=== PATIENT | female | born 1975 | race Caucasian/White ===

== ENCOUNTER 2017-10-18 13:08 | Emergency (ER) | payer MEDICAID ==
[~2017-10-18] VITALS: Ht 165.1 cm; Wt 85.5 kg
[~2017-10-18 13:08] MED LIST: ABILIFY30 MG PO; AMOXICILLIN 50500 MG PO; CELEXA40 MG PO; CEPHALEXIN500 M1 PO; CYMBALTA 30MG30 MG; DEPO-PROVER150 MG/M1 IM; FISH OIL CONC1000 MG PO; LAMICTAL; LORTAB 5/500 501 TAB PO; NORCO 325 MG-51 TAB PO; PEPCID 20MG TAB20 MG PO; SEROQUEL 200MG200 MG; XANAX0.5 MG PO; ZIPRASIDONE
[2017-10-18 13:10] VITALS: BP 115/58; PULSE 74; TEMP 97.2
[2017-10-18] MEDS ORDERED: NEURONTIN300 MG/CAP PO (13:14)
[2017-10-18] MEDS ORDERED: ABIL400 (13:14)
[2017-10-18] MEDS ORDERED: BRINTELLIX10 (13:14)
[2017-10-18] MEDS ORDERED: INDERAL 10MG10 MG PO (13:15)
== END 2017-10-18 13:57 | disposition home or self-care (01) ==
LOC: COL.ER 13:08
DX: S61.211A Laceration without foreign body of left index finger without damage to nail, initial encounter (principal); W26.8XXA Contact with other sharp object(s), not elsewhere classified, initial encounter; Y92.009 Unspecified place in unspecified non-institutional (private) residence as the place of occurrence of the external cause

== ENCOUNTER 2018-08-23 16:32 | Emergency (ER) | payer MEDICAID ==
[~2018-08-23] VITALS: Ht 162.6 cm; Wt 72.7 kg
[~2018-08-23 16:32] MED LIST changes: +ABIL400; +BRINTELLIX10; +INDERAL 10MG10 MG PO; +NEURONTIN300 MG/CAP PO
[2018-08-23] MEDS ORDERED: NORCO 325 MG-51 TAB PO (18:09)
[2018-08-23 19:37] LABS: BASO % 0.4 % (0.0-2.0); EOS % 0.4 % (0-4.0); GRAN % 74.8 % (42.2-75.2); HEMOGLOBIN 12.1 g/dl (12.5-16.0); LYMPH # 1.3 (1.2-3.4); LYMPH % 16.2 % (20.0-51.0); MEAN CELL VOLUME 90 fl (80.0-100.0); MEAN CORPUSCULAR HEMOGLOBIN 31 pg (27.0-31.0); MEAN CORPUSCULAR HGB CONC 34 g/dl (33.0-37.0); MEAN PLATELET VOLUME 9.6 fl (7.4-10.4); MONO # 0.6 (0.1-0.6); MONO % 7.7 % (1.7-9.3); PLATELET COUNT 134 K/mm3 (130-400); RED BLOOD COUNT 3.96 M/mm3 (4.10-5.30); REDCELL DISTRIBUTION WIDTH-CV 12.9 % (11.5-14.5)
[2018-08-23 19:38] LABS: HEMATOCRIT 35.8 % (37.0-47.0)
[2018-08-23 19:47] LABS: ALBUMIN 3.3 gm/dL (3.5-5.0); BILIRUBIN,TOTAL 0.1 mg/dL (0.0-1.0); CALCIUM 8.5 mg/dL (8.4-10.2); CREATININE, serum 0.6 mg/dL (0.52-1.25); POTASSIUM 3.5 mmol/L (3.4-5.0); TOTAL PROTEIN 6.2 gm/dL (6.4-8.2)
[2018-08-23] MEDS ORDERED: DOXYCYCLINE 10100 MG PO (19:47)
[2018-08-23 20:15] VITALS: BP 118/72; PULSE 99
== END 2018-08-23 20:16 | disposition home or self-care (01) ==
LOC: COL.ER 16:32
PROVIDERS: Physician Assistant
DX: J06.9 Acute upper respiratory infection, unspecified (principal); Z90.49 Acquired absence of other specified parts of digestive tract

== ENCOUNTER 2018-09-22 19:09 | Emergency (ER) | payer MEDICAID ==
[~2018-09-22] VITALS: Ht 162.6 cm; Wt 68.2 kg
[~2018-09-22 19:09] MED LIST changes: +DOXYCYCLINE 10100 MG PO
[2018-09-22 19:16] VITALS: BP 110/65; TEMP 99.5
[2018-09-22 21:18] VITALS: PULSE 89
== END 2018-09-22 21:19 | disposition home or self-care (01) ==
LOC: COL.ER 19:09
DX: M23.92 Unspecified internal derangement of left knee (principal); X50.0XXA Overexertion from strenuous movement or load, initial encounter

== ENCOUNTER → 2019-05-27 | Outpatient (CLI) | payer MEDICAID ==
[~2019-05-27] MED LIST changes: +DEPAKOTE ER 50500 MG PO; +NEURONTIN800 MG/TAB PO; +REXULTI3 MG PO; +TOPAMAX 100MG100 M1 PO
== END ==
LOC: COL.RAD 14:59
DX: M77.12 Lateral epicondylitis, left elbow (principal)

== ENCOUNTER 2019-07-29 11:00 | Outpatient (RCR) | payer MEDICAID | END 2019-08-08 08:34 | disposition home or self-care (01) | LOC: WSOT 11:00 | DX: M77.12 Lateral epicondylitis, left elbow (principal) ==

== ENCOUNTER 2020-02-12 18:02 | Emergency (ER) | payer MEDICAID ==
[~2020-02-12] VITALS: Ht 162.6 cm; Wt 60.9 kg
[2020-02-12 18:07] VITALS: TEMP 97.9
[2020-02-12] MEDS ORDERED: ADDERALL30 MG PO (18:15)
[2020-02-12 18:58] LABS: BASO % 0.5 % (0.0-2.0); EOS % 0.6 % (0-4.0); GRAN # 3.3 (1.4-6.5); GRAN % 51.6 % (42.2-75.2); HEMOGLOBIN 11.4 g/dl (12.5-16.0); LYMPH # 2.5 (1.2-3.4); LYMPH % 38.7 % (20.0-51.0); MEAN CELL VOLUME 96 fl (80.0-100.0); MEAN CORPUSCULAR HEMOGLOBIN 34 pg (27.0-31.0); MEAN CORPUSCULAR HGB CONC 35 g/dl (33.0-37.0); MEAN PLATELET VOLUME 10.8 fl (7.4-10.4); MONO # 0.5 (0.1-0.6); MONO % 8.4 % (1.7-9.3); PLATELET COUNT 162 K/mm3 (130-400); RED BLOOD COUNT 3.37 M/mm3 (4.10-5.30); REDCELL DISTRIBUTION WIDTH-CV 12.2 % (11.5-14.5)
[2020-02-12 18:59] LABS: HEMATOCRIT 32.3 % (37.0-47.0)
[2020-02-12 19:02] LABS: ALBUMIN 3.6 gm/dL (3.5-5.0); BILIRUBIN,TOTAL 0.3 mg/dL (0.0-1.0); CALCIUM 9.1 mg/dL (8.4-10.2); CREATININE, serum 0.81 (0.52-1.25); POTASSIUM 3.4 mmol/L (3.4-5.0); TOTAL PROTEIN 6.4 gm/dL (6.4-8.2)
[2020-02-12 19:18] LABS: PROLACTIN 19.5 ng/mL (3.0-18.6)
[2020-02-12 19:35] VITALS: BP 98/59; PULSE 74
== END 2020-02-12 19:47 | disposition home or self-care (01) ==
LOC: COL.ER 18:02
PROVIDERS: Family Medicine
DX: R56.9 Unspecified convulsions (principal); F17.210 Nicotine dependence, cigarettes, uncomplicated; Z88.2 Allergy status to sulfonamides; Z88.6 Allergy status to analgesic agent
CPT/HCPCS: J1790; J7120

== ENCOUNTER 2020-03-03 13:15 | Outpatient (RCR) | payer MEDICAID ==
[~2020-03-03 13:15] MED LIST changes: +ADDERALL30 MG PO
== END 2020-05-11 | disposition home or self-care (01) ==
LOC: WSOT
DX: M77.11 Lateral epicondylitis, right elbow (principal); M77.12 Lateral epicondylitis, left elbow

== ENCOUNTER → 2020-04-02 | Outpatient (CLI) | payer MEDICAID | LOC: COL.RAD 09:17 | DX: D32.9 Benign neoplasm of meninges, unspecified (principal) | CPT/HCPCS: A9585 ==

== ENCOUNTER 2020-09-08 12:02 | Emergency (ER) | payer MEDICAID ==
[~2020-09-08] VITALS: Ht 162.6 cm; Wt 65.0 kg
[2020-09-08 12:09] VITALS: BP 99/67; TEMP 98.2
[2020-09-08] MEDS ORDERED: FLEXERIL 1010 MG/TAB PO (13:37)
[2020-09-08] MEDS ORDERED: ATIVAN 1MG T1 MG/TAB PO (13:38)
[2020-09-08] MEDS ORDERED: LUNESTA3 MG PO (13:38)
[2020-09-08] MEDS ORDERED: DOXYCYCLINE 10100 MG PO (13:38)
[2020-09-08] MEDS ORDERED: NAPROSYN500 MG PO (13:39)
[2020-09-08] MEDS ORDERED: DESOWEN0.051 TP (13:39)
[2020-09-08 13:40] VITALS: PULSE 81
== END 2020-09-08 13:40 | disposition home or self-care (01) ==
LOC: COL.ER 12:02
DX: S61.012A Laceration without foreign body of left thumb without damage to nail, initial encounter (principal); F32.9 Major depressive disorder, single episode, unspecified; F17.210 Nicotine dependence, cigarettes, uncomplicated; Z88.2 Allergy status to sulfonamides; Z88.6 Allergy status to analgesic agent; W25.XXXA Contact with sharp glass, initial encounter

== ENCOUNTER → 2020-09-20 | Outpatient (CLI) | payer MEDICAID ==
[~2020-09-20] MED LIST changes: +ATIVAN 1MG T1 MG/TAB PO; +DESOWEN0.051 TP; +FLEXERIL 1010 MG/TAB PO; +LUNESTA3 MG PO; +NAPROSYN500 MG PO
[2020-09-20 11:13] VITALS: BP 103/64; PULSE 75; TEMP 97.7
== END ==
LOC: COL.ER 11:09
DX: Z48.02 Encounter for removal of sutures (principal)

== ENCOUNTER → 2020-09-30 | Outpatient (CLI) | payer MEDICAID | LOC: MC.RAD 14:14 | DX: Z12.31 Encounter for screening mammogram for malignant neoplasm of breast (principal); N64.89 Other specified disorders of breast ==

== ENCOUNTER → 2020-10-08 | Outpatient (CLI) | payer MEDICAID | LOC: MC.RAD 08:00 | DX: N64.89 Other specified disorders of breast (principal) ==

== ENCOUNTER → 2021-07-04 | Outpatient (CLI) | payer MEDICAID | LOC: COL.RAD 07:43 | DX: R10.12 Left upper quadrant pain (principal); Z90.49 Acquired absence of other specified parts of digestive tract ==

== ENCOUNTER 2021-08-02 14:38 | Emergency (ER) | payer MEDICAID ==
[~2021-08-02] VITALS: Ht 162.6 cm; Wt 63.2 kg
[2021-08-02 15:11] VITALS: TEMP 98
[2021-08-02 19:11] VITALS: BP 117/81; PULSE 71
== END 2021-08-02 19:14 | disposition home or self-care (01) ==
LOC: COL.ER 14:38
DX: R10.32 Left lower quadrant pain (principal); F31.9 Bipolar disorder, unspecified; Z98.84 Bariatric surgery status; Z90.49 Acquired absence of other specified parts of digestive tract; Z79.899 Other long term (current) drug therapy
CPT/HCPCS: J1885

== ENCOUNTER 2021-08-06 00:43 | Emergency (ER) | payer MEDICAID ==
[~2021-08-06] VITALS: Ht 162.6 cm; Wt 64.1 kg
[2021-08-06 02:23] VITALS: TEMP 98.8
[2021-08-06 03:43] LABS: ALBUMIN 3.9 gm/dL (3.5-5.0); BILIRUBIN,TOTAL 0.4 mg/dL (0.2-1.2); CALCIUM 8.9 mg/dL (8.4-10.2); CREATININE, serum 0.88 mg/dL (0.57-1.11); POTASSIUM 3.8 mmol/L (3.5-4.5); TOTAL PROTEIN 6.5 gm/dL (6.2-8.1)
[2021-08-06 03:49] LABS: BASO % 0.4 % (0.0-2.0); EOS # 0.1 K/mm3 (0.0-0.7); EOS % 0.6 % (0.0-4.0); GRAN % 70.1 % (42.2-75.2); HEMOGLOBIN 11.7 g/dl (12.5-16.0); LYMPH # 2.1 K/mm3 (1.2-3.4); LYMPH % 20.7 % (20.0-51.0); MEAN CELL VOLUME 93 fl (80.0-100.0); MEAN CORPUSCULAR HEMOGLOBIN 31 pg (27-31); MEAN CORPUSCULAR HGB CONC 34 g/dl (33.0-37.0); MONO # 0.8 K/mm3 (0.1-0.6); MONO % 7.9 % (1.7-9.3); PLATELET COUNT 207 K/mm3 (130-400); RED BLOOD COUNT 3.76 M/mm3 (4.10-5.30); REDCELL DISTRIBUTION WIDTH-CV 13.2 % (11.5-14.5)
[2021-08-06 03:51] LABS: HEMATOCRIT 34.9 % (37.0-47.0)
[2021-08-06] MEDS ORDERED: BENTYL 20MG20 MG/TAB PO (07:08)
[2021-08-06] MEDS ORDERED: NORCO 325 MG-51 TAB PO (07:08)
[2021-08-06] MEDS ORDERED: ZOFRAN ODT4 MG PO (07:08)
[2021-08-06 07:27] VITALS: BP 101/62; PULSE 98
== END 2021-08-06 07:27 | disposition home or self-care (01) ==
LOC: COL.ER 00:43
PROVIDERS: Personal Emergency Response Attendant
DX: R10.84 Generalized abdominal pain (principal); F31.9 Bipolar disorder, unspecified; F17.210 Nicotine dependence, cigarettes, uncomplicated; Z79.899 Other long term (current) drug therapy
CPT/HCPCS: J1790; J3010; J7030; Q9967

== ENCOUNTER 2021-08-11 10:14 | Day surgery (SDC) | payer MEDICAID ==
[~2021-08-11] VITALS: Ht 162.6 cm; Wt 63.6 kg
[2021-08-11] VITALS (9 sets, daily range): BP systolic 93–103; BP diastolic 52–64; PULSE 64–88; TEMP 97.2–97.4
[~2021-08-11 10:14] MED LIST changes: +BENTYL 20MG20 MG/TAB PO; +ZOFRAN ODT4 MG PO
--- NOTE | 2021-08-11 15:10 | NUR ---
Patient returns to room 3 per cart from PACU accompanied by Alpa BAUER. Patient arouses to verbal stimuli. Temp 97.8. On oxygen at 2L per nasal cannula. Allowed to rest. Incisions x3 on right side of abdomen intact with zelaya set and wound edges well approximated. IV fluids infusing. Siderails up x2 and call light in reach.
[2021-08-11] MEDS ORDERED: PERCOCET 325 MG1 TA2 PO (15:21)
--- NOTE | 2021-08-11 15:25 | NUR ---
Resting with eyes closed and not disturbed.
--- NOTE | 2021-08-11 15:40 | NUR ---
Continues to rest with eyes closed.
--- NOTE | 2021-08-11 15:55 | NUR ---
Awake and taking sips of water. Denies nausea.
--- NOTE | 2021-08-11 16:05 | NUR ---
Eating toast and drinking apple juice. Denies nausea.
--- NOTE | 2021-08-11 16:37 | NUR ---
Rates pain at 5/10. Medicated with Percocet 5mg one tab.
--- NOTE | 2021-08-11 16:40 | NUR ---
Resting with eyes closed and offers no further complaints of pain.
--- NOTE | 2021-08-11 17:10 | NUR ---
Resting and offers no further complaints of discomfort.
--- NOTE | 2021-08-11 17:45 | NUR ---
IV to INT. Assisted up to bathroom. Able to void small amount of urine. Returns to room and INT discontinued. Assisted patient with dressing. Given patient dismissal instructions. All questions answered.
--- NOTE | 2021-08-11 17:49 | NUR ---
Patient dismissed to home driven by mother and taken to the emergency room entrance and assisted into vehicle with dismissal instructions in hand.
== END 2021-08-11 17:49 | disposition home or self-care (01) ==
LOC: SDCO 10:14
DX: K43.9 Ventral hernia without obstruction or gangrene (principal); K42.9 Umbilical hernia without obstruction or gangrene; G89.29 Other chronic pain; F17.210 Nicotine dependence, cigarettes, uncomplicated; F31.9 Bipolar disorder, unspecified; Z79.899 Other long term (current) drug therapy; Z98.84 Bariatric surgery status; Z80.42 Family history of malignant neoplasm of prostate; Z80.1 Family history of malignant neoplasm of trachea, bronchus and lung; Z80.41 Family history of malignant neoplasm of ovary
CPT/HCPCS: C1781; J0690; J1100; J2405; J2704; J3010; J7120

== ENCOUNTER 2021-08-28 00:43 | Emergency (ER) | payer MEDICAID ==
[~2021-08-28] VITALS: Ht 162.6 cm; Wt 62.7 kg
[~2021-08-28 00:43] MED LIST changes: +PERCOCET 325 MG1 TA2 PO
[2021-08-28 00:45] VITALS: TEMP 97.8
[2021-08-28 01:34] LABS: COLLECTION METHOD CLEAN CATCH
[2021-08-28 01:37] LABS: BASO # 0.1 K/mm3 (0.0-0.2); BASO % 0.8 % (0.0-2.0); EOS # 0.1 K/mm3 (0.0-0.7); EOS % 1.4 % (0.0-4.0); GRAN % 64.3 % (42.2-75.2); HEMOGLOBIN 12.8 g/dl (12.5-16.0); LYMPH # 1.9 K/mm3 (1.2-3.4); LYMPH % 24.9 % (20.0-51.0); MEAN CELL VOLUME 90 fl (80.0-100.0); MEAN CORPUSCULAR HEMOGLOBIN 31 pg (27-31); MEAN CORPUSCULAR HGB CONC 35 g/dl (33.0-37.0); MEAN PLATELET VOLUME 10.5 fl (7.4-10.4); MONO # 0.7 K/mm3 (0.1-0.6); MONO % 8.3 % (1.7-9.3); PLATELET COUNT 264 K/mm3 (130-400); REDCELL DISTRIBUTION WIDTH-CV 12.6 % (11.5-14.5)
[2021-08-28 01:44] LABS: MUCOUS Present (NOT PRESENT); PH 6 (5-8); SQUAMOUS EPITHELIAL 0-2 /hpf (0-10); URINE APPEARANCE Clear (CLEAR/HAZY); URINE BACTERIA None Seen /hpf (NONE SEEN); URINE BILIRUBIN Negative (NEGATIVE); URINE BLOOD Negative (NEGATIVE); URINE COLOR Yellow (YELLOW); URINE GLUCOSE Negative (NEGATIVE); URINE KETONE Negative (NEGATIVE); URINE LEUKOCYTE ESTERASE Negative (NEGATIVE); URINE NITRATE Negative (NEGATIVE); URINE PROTEIN(semi-quant) Negative (NEGATIVE); URINE RBC 0-2 /hpf (0-2); URINE UROBILINOGEN Negative (NEGATIVE)
[2021-08-28 01:59] LABS: ALBUMIN 4.2 gm/dL (3.5-5.0); BILIRUBIN,TOTAL 0.4 mg/dL (0.2-1.2); C-REACTIVE PROTEIN 0.13 mg/dL (0.00-0.50); CALCIUM 9.2 mg/dL (8.4-10.2); CREATININE, serum 0.8 mg/dL (0.57-1.11); POTASSIUM 3.7 mmol/L (3.5-4.5); TOTAL PROTEIN 7.3 gm/dL (6.2-8.1)
[2021-08-28 04:03] VITALS: BP 103/57; PULSE 77
== END 2021-08-28 04:03 | disposition home or self-care (01) ==
LOC: COL.ER 00:43
PROVIDERS: Nurse Practitioner Primary Care
DX: R10.84 Generalized abdominal pain (principal); R11.0 Nausea; F41.9 Anxiety disorder, unspecified; F32.A Depression, unspecified; F17.200 Nicotine dependence, unspecified, uncomplicated; Z90.49 Acquired absence of other specified parts of digestive tract; Z98.84 Bariatric surgery status; Z98.890 Other specified postprocedural states; Z20.822 Contact with and (suspected) exposure to COVID-19; Z88.5 Allergy status to narcotic agent
CPT/HCPCS: J2405; J7030; Q9967

== ENCOUNTER → 2022-04-20 | Outpatient (CLI) | payer MEDICAID | LOC: COL.RAD 09:45 | DX: R10.32 Left lower quadrant pain (principal) ==

== ENCOUNTER → 2022-05-18 | Outpatient (CLI) | payer MEDICAID | LOC: COL.RAD 14:27 | DX: M79.645 Pain in left finger(s) (principal) ==

== ENCOUNTER 2023-11-11 16:09 | Inpatient (IN) | payer OTHER ==
[2023-11-11] VITALS (297 sets, daily range): BP systolic 85–118; BP diastolic 48–108; PULSE 64–83; TEMP 32.9; O2SAT 98–100
[~2023-11-11] VITALS: Ht 162.6 cm; Wt 61.2 kg
[2023-11-11] MEDS ORDERED: Etomidate 20 MG/10 ML VIAL IV ONE (16:25)
[2023-11-11] MEDS ORDERED: Succinylcholine PF 200 MG/10 ML SYRINGE IV ONE (16:26)
[2023-11-11 16:27] LABS: BASO % 0.9 % (0.0-2.0); EOS # 0.1 K/mm3 (0.0-0.7); EOS % 1.8 % (0.0-4.0); GRAN # 1.4 K/mm3 (1.4-6.5); GRAN % 39.7 % (42.2-75.2); HEMOGLOBIN 10.9 g/dl (12.5-16.0); LYMPH # 1.6 K/mm3 (1.2-3.4); LYMPH % 45.6 % (20.0-51.0); MEAN CELL VOLUME 91 fl (80.0-100.0); MEAN CORPUSCULAR HEMOGLOBIN 30 pg (27-31); MEAN CORPUSCULAR HGB CONC 33 g/dl (33.0-37.0); MEAN PLATELET VOLUME 10.6 fl (7.4-10.4); MONO # 0.4 K/mm3 (0.1-0.6); PLATELET COUNT 147 K/mm3 (130-400); RED BLOOD COUNT 3.61 M/mm3 (4.10-5.30); REDCELL DISTRIBUTION WIDTH-CV 13.2 % (11.5-14.5)
[2023-11-11 16:28] LABS: HEMATOCRIT 32.7 % (37.0-47.0)
[2023-11-11] MEDS ORDERED: fentaNYL 50 MCG/ML 2 ML VIAL IV ONE (16:33)
[2023-11-11] MEDS ORDERED: Midazolam 2 MG/2 ML VIAL IV ONE (16:35)
[2023-11-11] MEDS ORDERED: NS 1,000 ML IV ONE ×2 (16:45→17:30)
[2023-11-11 16:46] LABS: ALANINE AMINOTRANSFERASE 23 U/L (0-55); ALBUMIN 3.1 gm/dL (3.5-5.0); ALCOHOL(ethanol),MEDICAL < 10 mg/dL (0-10); ALKALINE PHOSPHATASE 86 U/L (40-150); ANION GAP 7 mmol/L (7-16); AST,SGOT 21 U/L (5-34); BILIRUBIN,TOTAL 0.3 mg/dL (0.2-1.2); BLOOD UREA NITROGEN 11 mg/dL (7-19); C-REACTIVE PROTEIN 0.05 mg/dL (0.00-0.50); CALCIUM 8.6 mg/dL (8.4-10.2); CHLORIDE 110 mmol/L (98-107); CREATININE, serum 0.69 mg/dL (0.57-1.11); GLUCOSE 69 mg/dL (70-99); POTASSIUM 3.6 mmol/L (3.5-4.5); SODIUM 141 mmol/L (136-145); TOTAL PROTEIN 5.7 gm/dL (6.2-8.1)
[2023-11-11 16:47] LABS: ARTERIAL BLD GAS O2 SATURATION 99.5 % (92-100); ARTERIAL BLOOD GAS BASE EXCESS -1.2 (-2-2); ARTERIAL BLOOD GAS HCO3 22.9 meq/L (22-26); ARTERIAL BLOOD GAS PCO2 36.4 mmHg (35-45); ARTERIAL BLOOD GAS pH 7.42 (7.35-7.45)
[2023-11-11 16:48] LABS: ARTERIAL BLOOD GAS PO2 497.8 mmHg (80-100)
[2023-11-11 16:54] LABS: COLLECTION METHOD CLEAN CATCH
[2023-11-11 16:58] LABS: PH 7.5 (5.0-8.5); URINE APPEARANCE CLEAR (CLEAR/HAZY); URINE BLOOD NEGATIVE (NEGATIVE); URINE COLOR YELLOW (YELLOW); URINE GLUCOSE NEGATIVE (NEGATIVE); URINE KETONE NEGATIVE (NEGATIVE); URINE NITRATE NEGATIVE (NEGATIVE); URINE PROTEIN(semi-quant) NEGATIVE (NEGATIVE); URINE UROBILINOGEN 0.2 E.U/dL (0.2-1.0)
[2023-11-11 17:09] LABS: TRICYCLIC ANTIDEPRESS URINE NEGATIVE (NEGATIVE)
[2023-11-11] MEDS ORDERED: *Potassium Replacement Protocol MC SCH (18:00)
[2023-11-11] MEDS ORDERED: fentaNYL 100 ML IV ONE (18:00)
[2023-11-11] MEDS ORDERED: NS 1,000 ML IV SCH (18:00)
--- NOTE | 2023-11-11 18:10 | NUR ---
Pt arrived from to ICU 8 from ED at this time. Report received from LIZETTE Smith. Pt intubated and sedated in ED due to intentional overdose of lunesta. 7.5 ETT 22 cm at gums. OG 50cm at lip and to LIS. Dave cath to dependent drainage with clear yellow urine draining. Bilateral soft wrist restraints applied at 1830 for medical management of lines. Pt pulling arms up and coughing on ET tube but does not follow commands at this itme. Pt has a silver ring on left hand and a silver ring on right hand; those remain in place. Pt's dentures, clothes, and shoes given to security prior to pt being brought to ICU. Unable to obtain info on pt's home medications, allergies, pharmacy, and history due to pt being intubated and sedated; some information obtained from pt's mother and son. Mother and son brought to the bedside once pt was settled. LIZETTE Smith states that once pt is awake and extubated we are to call [facility] to let them know and are not supposed to let her leave until they arrive to speak with her; Dr. Gage aware.
[2023-11-11] MEDS ORDERED: Naloxone 0.4 MG/ML VIAL IV PRN (18:30)
[2023-11-11] MEDS ORDERED: fentaNYL 100 ML IV SCH (18:30)
[2023-11-11] MEDS ORDERED: Pantoprazole 40 MG in NS 10 ML IV SCH ×2 (19:33→19:34)
--- NOTE | 2023-11-11 19:49 | NUR ---
PT INTUBATED AND SEDATED. BILATERAL WRIST RESTRAINTS IN PLACE. ET TUBE AT 22 AT GUMS. OG AT 50 AT LIPS. PERIPHERAL IV'S IN BOTH AC'S. CONNORS CATHETER IN PLACE AND DRAINING. PT WAKES TO PAIN BUT DOES NOT FOLLOW COMMANDS.
--- NOTE | 2023-11-11 21:09 | NUR ---
AT [address] FOX OF [facility] VENT SETTINGS. VT DECREASED FROM 400 TO 380. NO NEW SETTING CHANGES MADE AT THIS TIME.
[2023-11-12] VITALS (992 sets, daily range): BP systolic 87–115; BP diastolic 43–68; PULSE 58–80; TEMP 35.7–37.4; O2SAT 92–100
[2023-11-12] MEDS ORDERED: NS 1,000 ML IV ONE (02:00)
[2023-11-12] MEDS ORDERED: Atropine 1 MG/10 ML SYRINGE IV PRN (04:30)
[2023-11-12 04:41] LABS: BASO % 0.4 % (0.0-2.0); EOS # 0.1 K/mm3 (0.0-0.7); EOS % 2.1 % (0.0-4.0); GRAN # 1.8 K/mm3 (1.4-6.5); HEMOGLOBIN 10.8 g/dl (12.5-16.0); LYMPH # 2.5 K/mm3 (1.2-3.4); LYMPH % 50.8 % (20.0-51.0); MEAN CELL VOLUME 90 fl (80.0-100.0); MEAN CORPUSCULAR HEMOGLOBIN 31 pg (27-31); MEAN CORPUSCULAR HGB CONC 34 g/dl (33.0-37.0); MEAN PLATELET VOLUME 10.6 fl (7.4-10.4); MONO # 0.4 K/mm3 (0.1-0.6); MONO % 8.5 % (1.7-9.3); PLATELET COUNT 149 K/mm3 (130-400); RED BLOOD COUNT 3.52 M/mm3 (4.10-5.30); REDCELL DISTRIBUTION WIDTH-CV 13.6 % (11.5-14.5)
[2023-11-12 04:45] LABS: HEMATOCRIT 31.6 % (37.0-47.0)
[2023-11-12 04:58] LABS: ALBUMIN 2.9 gm/dL (3.5-5.0); CALCIUM 8.1 mg/dL (8.4-10.2); CREATININE, serum 0.68 mg/dL (0.57-1.11); MAGNESIUM 1.7 mg/dL (1.6-2.6); PHOSPHOROUS 2.8 mg/dL (2.3-4.7); POTASSIUM 3.9 mmol/L (3.5-4.5)
[2023-11-12 05:36] LABS: ARTERIAL BLD GAS O2 SATURATION 97.9 % (92-100); ARTERIAL BLD GAS TCO2 CT 22.7; ARTERIAL BLOOD GAS BASE EXCESS -3.4 (-2-2); ARTERIAL BLOOD GAS HCO3 21.6 meq/L (22-26); ARTERIAL BLOOD GAS PCO2 38.6 mmHg (35-45); ARTERIAL BLOOD GAS pH 7.37 (7.35-7.45)
[2023-11-12 05:37] LABS: ARTERIAL BLOOD GAS PO2 124.7 mmHg (80-100)
--- NOTE | 2023-11-12 06:23 | NUR ---
PATIENT HAD A LOW HEART RATE AROUND 0400. SEDATION WAS TURNED OFF TO IMPROVE HEART RATE. PT TOLERATED WELL. SEDATION OFF FOR ABOUT 15-20 MINUTES. PT WAKES AND MOVES TO PAIN.
[2023-11-12] MEDS ORDERED: Magnesium Sulfate 4% 50 ML IV ONE (09:00)
[2023-11-12] MEDS ORDERED: LR 1,000 ML IV ONE (09:00)
--- NOTE | 2023-11-12 09:23 | NUR ---
[facility] [employer] met with patient's mother, Kyara (ph#[phone]) and son, Quinton (age 21) at bedside as patient is intubated at time of intake. Patient lives in [place] with her son and has Pati Bunn NP listed as primary care provider. Quinton remarked patient has not seen Pati in a while. Per progress notes, patient was admitted after an intentional overdose. Kyara advised patient has a significant mental health history and has been diagnosed with bipolar disorder. Kyara advised patient is involved with [facility], but Kyara implied that she is not pleased with their services. Kyara stated patient has asked for help many times. Patient is listed as self pay and Kyara stated she thought patient was supposed to have coverage start 11/19/23, but not sure what the exact coverage was. SW contacted [employer] for assistance. Patient does not have DPOA-HC and her son, Quinton is her only child and legal next of kin. Quinton stated he does not have a phone and stated the best way to reach him is through Kyara. Discharge Plan: TBD, patient intubated and will need psych consult
--- NOTE | 2023-11-12 09:27 | NUR ---
RECEIVED REPORT FROM [facility] RNMINERVA. PATIENT REMAINS INTUBATED AND SEDATED AT THIS TIME. PROPOFOL AND FENTANYL FOR SEDATION. TWO SOFT WRIST RESTRATINTS IN PLACE.
--- NOTE | 2023-11-12 09:56 | NUR ---
HEAD TO TOE ASSESSMENT COMPLETED. PATIENT REMAINS INTUBATED AND ON SEDATION AT THIS TIME. PATIENT REACTS TO VOICE AND IS ABLE TO FOLLOW COMMANDS. PUPILS EQUAL AND REACTIVE. HEART SOUNDS REGULAR WITH S1 AND S2 NOTED. BOWEL SOUNDS ACTIVE. LUNG SOUNDS CLEAR BILATERALLY. PATIENT HAS CONNORS IN PLACE DRAINING, CLEAR, YELLOW URINE. PATIENT HAS TWO SOFT WRIST RESTRAINTS IN PLACE FOR LINE AND TUBE SECURITY. BED IN A LOW POSITION.
--- NOTE | 2023-11-12 16:57 | NUR ---
PATIENT ABLE TO WAKE UP AND FOLLOW COMMANDS ON AMOUNT OF SEDATION CURRENTLY ON. GETS VERY RESTLESS AND DOESN'T FOLLOW COMMANDS OFF SEDATION.
--- NOTE | 2023-11-12 18:57 | NUR ---
PATIENT REMAINS INTUBATED AND ON SEDATION AT THIS TIME. FENTANYL AND PROPOFOL UTILIZED FOR SEDATION. TWO SOFT WRIST RESTRAINTS IN PLACE FOR TUBE AND LINE SAFETY. PATIENT REMAINS ON LEVOPHED AT THIS TIME FOR BLOOD PRESSURE MANAGEMENT. BED IN A LOW POSITION WITH ALARM ON.
--- NOTE | 2023-11-12 20:00 | NUR ---
PT'S MOTHER CALLED AT 1949. STATUS UPDATE GIVEN. PT STABLE ON ROUNDS. KERA KIRKLAND REMOVED. PT FOLLOWS SOME COMMANDS. AWAKENS EASILY. NO SIGN OF DISTRESS AT THIS TIME. CONTINUE PLAN OF CARE.
--- NOTE | 2023-11-12 20:16 | NUR ---
PT AWAKE AND ALERT ON VENTILATOR. THICK GREEN LARGE SPUTUM COUGHED UP INTO ETT AND VARGAS TUBING. PT ASHA'Osmani, RN AT BEDSIDE.
--- NOTE | 2023-11-12 21:15 | NUR ---
AT 2023 THICK GREEN LARGE SPUTUM NOTED IN VARGAS TUBING. VARGAS CHANGED FOR A NEW ONE.
--- NOTE | 2023-11-12 23:42 | NUR ---
PER REPORT PT IS STABLE ON VENT. FAILED SBT TODAY. PLAN FOR SBT 11/12.
[2023-11-13] VITALS (697 sets, daily range): BP systolic 94–130; BP diastolic 54–78; PULSE 64–85; TEMP 37.3–38.5; O2SAT 89–100
[2023-11-13] MEDS ORDERED: Acetaminophen 325 MG TAB PO PRN (00:30)
[2023-11-13 05:05] LABS: BASO % 0.4 % (0.0-2.0); EOS % 0.5 % (0.0-4.0); GRAN # 6.3 K/mm3 (1.4-6.5); GRAN % 73.9 % (42.2-75.2); HEMOGLOBIN 10.4 g/dl (12.5-16.0); LYMPH # 1.5 K/mm3 (1.2-3.4); LYMPH % 17.8 % (20.0-51.0); MEAN CELL VOLUME 89 fl (80.0-100.0); MEAN CORPUSCULAR HEMOGLOBIN 31 pg (27-31); MEAN CORPUSCULAR HGB CONC 35 g/dl (33.0-37.0); MEAN PLATELET VOLUME 11.2 fl (7.4-10.4); MONO # 0.6 K/mm3 (0.1-0.6); MONO % 6.9 % (1.7-9.3); PLATELET COUNT 118 K/mm3 (130-400); RED BLOOD COUNT 3.38 M/mm3 (4.10-5.30); REDCELL DISTRIBUTION WIDTH-CV 12.9 % (11.5-14.5)
[2023-11-13 05:09] LABS: HEMATOCRIT 30.1 % (37.0-47.0)
--- NOTE | 2023-11-13 05:34 | NUR ---
SPONTANEOUS BREATHING TRIAL PLANED FOR 0700. PT DID NOT DO WELL OFF SEDATION 11/11. SEDATION CUT IN HALF. URINE HAS A GREENISH TINT THIS MORNING. PT HAS BEEN STABLE ON ROUNDS. FOLLOWS COMMANDS. NO SIGN OF DISTRESS AT THIS TIME. CONTINUE WITH PLAN OF CARE.
[2023-11-13 05:40] LABS: ALBUMIN 2.6 gm/dL (3.5-5.0); CALCIUM 7.9 mg/dL (8.4-10.2); CREATININE, serum 0.62 mg/dL (0.57-1.11); MAGNESIUM 1.6 mg/dL (1.6-2.6); PHOSPHOROUS 2.6 mg/dL (2.3-4.7); POTASSIUM 3.5 mmol/L (3.5-4.5)
[2023-11-13] MEDS ORDERED: Potassium Chloride 100 ML IV SCH ×2 (06:15→06:30)
[2023-11-13] MEDS ORDERED: Glucagon 1 MG VIAL IM PRN (06:15)
[2023-11-13] MEDS ORDERED: Dextrose 50% Water 25 GM/50 ML SYRINGE IV PRN (06:15)
[2023-11-13] MEDS ORDERED: Dextrose (Glucose) 15 GM (4 x 3.75 GM) Chewable TABLET PACK PO PRN (06:15)
--- NOTE | 2023-11-13 08:07 | NUR ---
RECEIVED REPORT FROM [facility] RNROSY. PATIENT REMAINS INTUBATED AT THIS TIME. SEDATION OFF FOR WEANING TRIAL. PATIENT RESTLESS AND AGGITATED. SOFT WRIST RESTRAINTS IN PLACE. BED IN A LOW POSITION, ALARM ON.
--- NOTE | 2023-11-13 08:20 | NUR ---
HEAD TO TOE ASSESSMENT COMPLETED. PATIENT OPENS EYES AND FOLLOWS COMMANDS. PATIENT REMAINS INTUBATED AT THIS TIME BUT OFF SEDATION AND ON A WEANING TRIAL. PUPILS EQUAL AND REACTIVE. HEART SOUNDS REGULAR WITH S1 AND S2 NOTED. LUNG SOUNDS CLEAR BILATERALLY. BOWEL SOUNDS ACTIVE X4. PATIENT HAS CONNORS IN PLACE DRAINING CLEAR, DARK YELLOW URINE. PULSES INTACT BILATERALLY IN UPPER AND LOWER EXTREMITIES. MEDICATIONS ADMINISTERED PER EMAR. BED IN A LOW POSITION, WITH ALARM ON. CALL LIGHT WITHIN REACH.
--- NOTE | 2023-11-13 08:30 | NUR ---
PATIENT EXTUBATED AT 0825. GORDO MARTÍNEZ, AND THIS NURSE PRESENT. PATIENT'S MOUTH SUCTIONED AND ORAL CARE PROVIDED AFTER EXTUBATION. PATIENT EDUCATED ON THROAT BEING SORE FOR AWHILE AND ADVANCING DIET LATER IN THE DAY. DR. FOX AWARE OF EXTUBATION.
[2023-11-13] MEDS ORDERED: Potassium Bicarbonate/Citrate 20 MEQ Effervescent TAB PO SCH (08:45)
[2023-11-13] MEDS ORDERED: *Potassium Replacement Protocol MC SCH (08:45)
[2023-11-13] MEDS ORDERED: Magnesium Sulfate 8% 50 ML IV ONE (08:45)
--- NOTE | 2023-11-13 08:53 | NUR ---
PT EXTUBATED TO 2L/NC NO COMPLICATIONS. TOLERATED WELL.
--- NOTE | 2023-11-13 17:40 | NUR ---
PATIENT H&P, HOSPITALIST NOTE WITH MEDICAL CLEARANCE, FACE SHEET, AND LABS FAXED TO [facility] TO REQUEST A SCREENING.
--- NOTE | 2023-11-13 17:50 | NUR ---
CALL TO [facility] TO VERIFY FAX CONFIRMATION. [facility] COMFIRMS THEY GOT FAX AND WILL GET PATIENT SCREENED SOON POSSIBLE.
--- NOTE | 2023-11-13 18:39 | NUR ---
PATIENT ON IPAD WITH SCREENER FROM [facility].
--- NOTE | 2023-11-13 19:01 | NUR ---
PATIENT SCREENED BY [facility]. PATIENT AGREEABLE TO GO TO [facility]. [facility] WILL HAVE A BED FOR HER TOMORROW AND WILL BE ABLE TO COME TO HOSPITAL TO GET PATIENT AFTER SHE IS DISCHARGED FOR TRANSPORTATION TO [facility].
[2023-11-14] VITALS (127 sets, daily range): BP systolic 89–97; BP diastolic 52–67; PULSE 72–89; TEMP 98.1; O2SAT 95–99
--- NOTE | 2023-11-14 07:00 | NUR ---
REPORT RECEIVED FROM LIZETTE YATES. PT HAD NO EVENTS OVERNIGHT AND SEEMS TO HAVE SLEPT MAJORITY OF NIGHT. APPEARS TO BE SLEEPING AT THIS TIME. CALL LIGHT IN REACH.
[2023-11-14 07:45] LABS: BASO % 0.1 % (0.0-2.0); EOS # 0.1 K/mm3 (0.0-0.7); EOS % 1.5 % (0.0-4.0); GRAN # 4.8 K/mm3 (1.4-6.5); GRAN % 69.8 % (42.2-75.2); HEMOGLOBIN 10.5 g/dl (12.5-16.0); LYMPH # 1.4 K/mm3 (1.2-3.4); LYMPH % 19.7 % (20.0-51.0); MEAN CELL VOLUME 85 fl (80.0-100.0); MEAN CORPUSCULAR HEMOGLOBIN 31 pg (27-31); MEAN CORPUSCULAR HGB CONC 36 g/dl (33.0-37.0); MEAN PLATELET VOLUME 11.5 fl (7.4-10.4); MONO # 0.6 K/mm3 (0.1-0.6); MONO % 8.6 % (1.7-9.3); PLATELET COUNT 102 K/mm3 (130-400); RED BLOOD COUNT 3.44 M/mm3 (4.10-5.30); REDCELL DISTRIBUTION WIDTH-CV 13.2 % (11.5-14.5)
[2023-11-14 08:11] LABS: HEMATOCRIT 29.2 % (37.0-47.0)
[2023-11-14] MEDS ORDERED: DULoxetine 30 MG CAP PO SCH (09:00)
--- NOTE | 2023-11-14 09:00 | NUR ---
Pt states she does not want to take any of her AM meds this AM; protonix and cymbalta. This nurse educated pt that the cymbalta is what the psychiatrist recommended for her for her depression and bipolar disorder and that the protonix is to help with acid reflux. Despite education pt declined medication. This nurse informed pt that [facility] would be here to pick her up around 1100; pt having some reservations about going but states she will try it out.
[2023-11-14] MEDS ORDERED: CYMBALTA 30MG30 MG PO (09:39)
[2023-11-14 09:50] LABS: ALBUMIN 2.6 g/dL (3.5-5.0); CALCIUM 8.1 mg/dL (8.4-10.2); CREATININE, serum 0.6 mg/dL (0.57-1.11); MAGNESIUM 1.8 mg/dL (1.6-2.6); PHOSPHOROUS 2.4 mg/dL (2.3-4.7); POTASSIUM 4.9 mEq/L (3.5-4.5)
--- NOTE | 2023-11-14 11:58 | NUR ---
Pt left with [facility] staff member Rajan at this time. Pt aware that she has a mediction to [facility] at the pharmacy; Rajan also aware. Plan is for Rajan to take pt to pharmacy then her home in [place] to gather some supplies; will then proceed to [facility] for inpatient psychiatric treatment. PIV removed from left AC and right AC. Pt able to dress self. Pt in possession of all belongings; spoke with security and they do not have any of her belongings in their possession. Pt left with Rajan at 1158; ambulatory with steady gate. Discharge teaching provided and all questions answered as needed.
--- NOTE | 2023-11-14 16:18 | NUR ---
Patient discharged to [facility]. BILL contacted [facility] and confirmed they would take patient to [facility] her new prescriptions and to her home in [place] to gather her belongings.
== END 2023-11-14 11:58 | DRG 917 ==
LOC: COL.ER 16:09 → ICU 17:34
PROVIDERS: Emergency Medicine; Internal Medicine Pulmonary Disease; ADMIT Internal Medicine
PROC: 0BH17EZ Insertion of Endotracheal Airway into Trachea, Via Natural or Artificial Opening (ICD-10-PCS; principal; 2023-11-11)
PROC: 5A12012 Performance of Cardiac Output, Single, Manual (ICD-10-PCS; 2023-11-11)
PROC: 5A1945Z Respiratory Ventilation, 24-96 Consecutive Hours (ICD-10-PCS; 2023-11-11)
DX: T42.6X2A Poisoning by other antiepileptic and sedative-hypnotic drugs, intentional self-harm, initial encounter (principal); J96.01 Acute respiratory failure with hypoxia; E87.20 Acidosis, unspecified; E78.5 Hyperlipidemia, unspecified; E87.8 Other disorders of electrolyte and fluid balance, not elsewhere classified; F17.210 Nicotine dependence, cigarettes, uncomplicated; T50.3X5A Adverse effect of electrolytic, caloric and water-balance agents, initial encounter; F32.A Depression, unspecified; I95.2 Hypotension due to drugs; T40.415A Adverse effect of fentanyl or fentanyl analogs, initial encounter; T41.295A Adverse effect of other general anesthetics, initial encounter; E87.6 Hypokalemia; E83.42 Hypomagnesemia; Z90.49 Acquired absence of other specified parts of digestive tract; Z88.6 Allergy status to analgesic agent; Z88.2 Allergy status to sulfonamides; Z79.899 Other long term (current) drug therapy
CPT/HCPCS: C9113; J0461; J1650; J2250; J2704; J3010; J3475; J3480; J7030; J7060; J7120; Q3014

== ENCOUNTER → 2024-01-09 | Outpatient (CLI) | payer OTHER ==
[~2024-01-09] MED LIST changes: +CYMBALTA 30MG30 MG PO
== END ==
LOC: COL.RAD 15:57
DX: M25.511 Pain in right shoulder (principal)